=== PATIENT | female | born 1970 | race American Indian/Alaskan Native ===

== ENCOUNTER 2016-05-30 08:45 | Outpatient (CLI) | payer BC ==
--- NOTE | 2016-05-30 15:20 | Mammography Report ---
BILATERAL DIGITAL SCREENING MAMMOGRAM with CAD: 05/30/16 08:45:00 CLINICAL: Routine screening. COMPARISON:05/27/15 FINDINGS: The breasts are heterogeneously dense, which may obscure small masses. No mass, architectural distortion or suspicious calcifications. IMPRESSION: No mammographic evidence of malignancy. BI-RADS CATEGORY: 1 - - Negative RECOMMENDATION: Routine mammographic screening in one year. COMMENT: Patient follow-up letters are generated by our [employer] application.
== END 2016-05-30 08:46 | disposition home or self-care (01) ==
LOC: SPVWC 08:45
PROVIDERS: ATTEND Internal Medicine
DX: Z12.31 Encounter for screening mammogram for malignant neoplasm of breast (principal)
CPT/HCPCS: 77067; G0202

== ENCOUNTER 2017-06-05 09:02 | Outpatient (CLI) | payer BC ==
--- NOTE | 2017-06-06 12:15 | Mammography Report ---
BILATERAL DIGITAL SCREENING MAMMOGRAM with CAD: 06/05/17 09:02:00 CLINICAL: Routine screening. COMPARISON:05/30/16, 05/31/15 and 04/09/12 FINDINGS: The breasts are heterogeneously dense, which may obscure small masses. No mass, architectural distortion or suspicious calcifications. IMPRESSION: No mammographic evidence of malignancy. BI-RADS CATEGORY: 1 - - Negative RECOMMENDATION: Routine mammographic screening in one year. COMMENT: Patient follow-up letters are generated by our [employer] application.
== END 2017-06-05 09:03 | disposition home or self-care (01) ==
LOC: SPVWC 09:02
PROVIDERS: ATTEND Internal Medicine
DX: Z12.31 Encounter for screening mammogram for malignant neoplasm of breast (principal)
CPT/HCPCS: 77067

== ENCOUNTER 2019-09-02 07:47 | Outpatient (CLI) | payer BC ==
--- NOTE | 2019-09-02 09:02 | Mammography Report ---
DIGITAL SCREENING MAMMOGRAM WITH CAD, 09/02/2019 INDICATION: Routine screening mammography. TECHNIQUE: Digital bilateral 2D mammography was obtained in the craniocaudal and mediolateral obliq ue projections. This examination was interpreted with the benefit of Computer-Aided Detection analysi s. COMPARISON: 06/18/2018, 06/05/2017 FINDINGS: Breast Density: The breasts are heterogeneously dense, which may obscure small masses. There is no evidence of dominant mass, suspicious calcifications or architectural distortion in eithe r breast. IMPRESSION: Follow up recommendation: Routine yearly BI-RADS Category 1: Negative. A "normal" or negative report should not discourage follow up or biopsy of a clinically significant f inding. A written summary of these findings will be mailed to the patient. The patient will be entered into a mammography reporting system which will generate a reminder letter for the patient's next appointmen t at the appropriate interval. The [employer] recommends yearly mammograms starting at age 40 and continuing as l karla as a woman is in good health. Breast MRI is recommended for women with an approximate 20-25% or greater lifetime risk of breast cancer, including women with a strong family history of breast or ova bertrand cancer or who have been treated for Hodgkin's disease. Signer Name: Armond Chappell MD Signed: 09/02/2019 8:57 AM Workstation Name: [id number]
== END 2019-09-02 07:48 | disposition home or self-care (01) ==
LOC: SPVWC 07:47
PROVIDERS: ATTEND Internal Medicine
DX: Z12.31 Encounter for screening mammogram for malignant neoplasm of breast (principal); N64.89 Other specified disorders of breast
CPT/HCPCS: 77067

== ENCOUNTER 2021-06-07 12:55 | Outpatient (CLI) | payer BC ==
--- NOTE | 2021-06-09 09:08 | Mammography Report ---
DIGITAL SCREENING MAMMOGRAM WITH CAD, 06/07/2021 CLINICAL INFORMATION / INDICATION: Routine screening mammography. SCREENING MAMMO Z12.31 TECHNIQUE: Digital bilateral 2D mammography was obtained in the craniocaudal and mediolateral obliqu e projections. This examination was interpreted with the benefit of Computer-Aided Detection analysis . COMPARISON: 09/02/2019 FINDINGS: Breast Density: The breasts are heterogeneously dense, which may obscure small masses. No dominant mass, suspicious calcifications, or architectural distortion in either breast. IMPRESSION: No mammographic evidence of malignancy. Follow up recommendation: Routine yearly BI-RADS Category 1: NEGATIVE A "normal" or negative report should not discourage follow up or biopsy of a clinically significant f inding. A written summary of these findings will be mailed to the patient. The patient will be entered into a mammography reporting system which will generate a reminder letter for the patient's next appointmen t at the appropriate interval. The [employer] recommends yearly mammograms starting at age 40 and continuing as l karla as a woman is in good health. Breast MRI is recommended for women with an approximate 20-25% or greater lifetime risk of breast cancer, including women with a strong family history of breast or ova bertrand cancer or who have been treated for Hodgkin's disease. Signer Name: Johnson Allred MD Signed: 06/09/2021 9:04 AM Workstation Name: [id number]
== END 2021-06-07 12:56 | disposition home or self-care (01) ==
LOC: SPVWC 12:55
PROVIDERS: ATTEND Internal Medicine
DX: Z12.31 Encounter for screening mammogram for malignant neoplasm of breast (principal)
CPT/HCPCS: 77067